=== PATIENT | female | born 1970 | race Caucasian/White ===

== ENCOUNTER 2016-12-12 14:02 | Inpatient (IN) | payer MEDICARE ==
--- NOTE | 2016-12-12 14:11 | ERPHSYRPT ---
- History of Present Illness Time Seen by Provider: 12/12/16 14:03 Source: patient, EMS, old records Exam Limitations: clinical condition (dyspnea) Physician History: patient presents with acute onset of SOB; had a cough slightly productive dark material for 2-3 days; no CP; no hemoptosis; no travel; no exposures; hx of COPD ; simialr episode a year ago requiring admission; being treated for ulcer post right heel; fever and chills; loose stools; nausea Timing/Duration: today (much worse), day(s) (2-3 onset uri), gradual onset, sudden (worse today), worse Activities at Onset: rest Severity of Dyspnea-Max: severe Severity of Dyspnea-Current: moderate Possible Cause: occasional episodes Modifying Factors: Improves With: albuterol nebulizer, coughing, exertion, oxygen Associated Symptoms: cough, fever, chills, productive cough International travel in last 2 weeks: No Allergies/Adverse Reactions: amoxicillin [From Augmentin] Allergy (Verified 12/12/16 14:12) clavulanic acid [From Augmentin] Allergy (Verified 12/12/16 14:12) Sulfa (Sulfonamide Antibiotics) Allergy (Verified 12/12/16 14:12) Home Medications: Albuterol 2.5 mg/3 ml Neb [Proventil 2.5 mg/3 ml Neb] 2.5 mg IH Q4-6HPRN PRN 12/12/16 [History] Clonazepam [Klonopin] 1 mg PO BIDPRN PRN 12/12/16 [History] Fluticasone/Salmeterol [Advair 250-50 Diskus] 1 puff IH DAILY 12/12/16 [History] Gabapentin 300 mg PO TID 12/12/16 [History] - Review of Systems Constitutional: Fever, Chills Eyes: No Symptoms Ears, Nose, & Throat: No Symptoms Respiratory: Cough, Dyspnea, Dyspnea on Exertion (ABDI), Wheezing Cardiac: No Chest Pain, No Palpitations, No Syncope Abdominal/Gastrointestinal: Nausea, Diarrhea, No Abdominal Pain, No Vomiting Genitourinary Symptoms: No Symptoms Musculoskeletal: No Symptoms Skin: Decubiti (post right ankle) Neurological: No Symptoms Psychological: No Symptoms Endocrine: No Symptoms Hematologic/Lymphatic: No Symptoms Immunological/Allergic: No Symptoms - Past Medical History Pertinent Past Medical History: Yes Respiratory History: COPD, Emphysema - Past Surgical History Past Surgical History: Yes - Social History Smoking Status: Former smoker Exposure to second hand smoke: No Alcohol Use: None Drug Use: none Patient Lives Alone: No Significant Family History: no pertinent family hx - Female History Hx Now: No - Nursing Vital Signs Nursing Vital Signs: Initial Vital Signs Temperature 98.1 F 12/12/16 14:03 Pulse Rate 139 H 12/12/16 14:03 Respiratory Rate 26 H 12/12/16 14:03 Blood Pressure 98/50 12/12/16 14:03 O2 Sat by Pulse Oximetry 99 12/12/16 14:03 Pain Scale Pain Intensity 6 - Physical Exam General Appearance: severe distress (respiratory), alert Eye Exam: PERRL/EOMI, eyes nml inspection Ears, Nose, Throat Exam: hearing grossly normal, normal ENT inspection, normal pharynx Neck Exam: normal inspection, non-tender, supple, full range of motion, No meningismus, No carotid bruit, No JVD, No subcutaneous emphysema Respiratory Exam: respiratory distress (significant), airway intact, diminished breath sounds (particularly Left base), accessory muscle use, wheezing, other ( dullness to percussion left base with E-A changes; ), No normal breath sounds, No chest tenderness, No lungs clear, No pleural rub Cardiovascular/Chest Exam: normal heart sounds, regular rate/rhythm, normal peripheral pulses, tachycardia, No murmur, No edema, No JVD Abdominal/Gastrointestinal Exam: soft, normal bowel sounds, No tenderness, No guarding, No rebound, No organomegaly Rectal Exam: deferred Extremity Exam: non-tender, normal range of motion, no calf tenderness, no pedal edema, No normal inspection (old scars from kay; ulcer post right heel) , No philip's sign Peripheral Pulses Exam: carotid (R): 4+, carotid (L): 4+, femoral (R): 4+, femoral (L): 4+ Neurologic Exam: alert, oriented x 3, cooperative, rn ccu II-XII nml as tested, No normal mood/affect (anxious) Skin Exam: normal color, warm, dry, decubitus (post right heel), No rash, No petechiae, No cyanosis (on O2) SpO2 Interpretation: O2 applied SpO2: 90 (improved after O2) Oxygen Delivery: Room Air - Course Nursing assessment & vital signs reviewed: Yes EKG Interpreted by Me: RATE (137), Sinus Rhythm, Sinus Tach, Right Severance Deviation, NORMAL INTERVALS, NORMAL QRS, Non-specific ST Changes Rhythm Strip: Rate (136), Sinus Tachycardia - Radiology Exams Chest X-ray Interpretation: Interpreted by me, Teleradiologist Report, Nml Heart Size , Infiltrates (LLL), Pneumonia (LLL) Ordered Tests: Active Orders 24 hr Category Date Time Status Bedrest ROUTINE Activity 12/12/16 16:08 Ordered Admission/Status Order ROUTINE Care 12/12/16 16:06 Ordered Call Admit Doctor for Orders ON ADMISSION Care 12/12/16 16:07 Ordered Equine Intern STAT Care 12/12/16 14:04 Active Code Status Order ROUTINE Care 12/12/16 16:06 Ordered EKG-ER Only STAT Care 12/12/16 14:03 Active Fall Protocol ROUTINE Care 12/12/16 16:08 Ordered IV Care Q6H Care 12/12/16 16:06 Ordered IV Insertion STAT Care 12/12/16 14:03 Active Oxygen-ED Only VENTI-MASK 28% Care 12/12/16 14:03 Active Pulse Oximetry (ED) STAT Care 12/12/16 14:03 Active Yovani Hose, Apply ROUTINE Care 12/12/16 16:06 Ordered Telemetry ROUTINE Care 12/12/16 16:06 Ordered Weight,Daily 0600 Care 12/12/16 16:06 Ordered NPO Diet 12/12/16 16:08 Ordered CHEST 1 VIEW (PORTABLE) Stat Exams 12/12/16 14:04 Completed BLOOD CULTURE Stat Lab 12/12/16 14:45 Received CBC W DIFF Stat Lab 12/12/16 14:35 Completed CMP Stat Lab 12/12/16 14:35 Completed CULTURE,SPUTUM Stat Lab 12/12/16 14:47 Uncollected CULTURE,URINE Stat Lab 12/12/16 14:47 Ordered D-DIMER QUANTITATION Stat Lab 12/12/16 14:35 Completed Lactic Acid Stat Lab 12/12/16 14:35 Results Lactic Acid Urgent Lab 12/12/16 Ordered MAGNESIUM Stat Lab 12/12/16 14:35 Completed Manual Differential NC Stat Lab 12/12/16 14:35 Completed NT PRO BNP Stat Lab 12/12/16 14:35 Completed PROTIME WITH INR Stat Lab 12/12/16 14:35 Completed PTT Stat Lab 12/12/16 14:35 Completed TROPONIN Q3H Lab 12/12/16 14:35 Completed TROPONIN Q3H Lab 12/12/16 17:15 Ordered TROPONIN Q3H Lab 12/12/16 20:15 Ordered TROPONIN Q3H Lab 12/12/16 23:15 Ordered TROPONIN Q3H Lab 12/13/16 02:15 Ordered UA Stat Lab 12/12/16 15:54 Ordered Transfer Order Routine Transfer 12/12/16 Ordered Medication Summary Generic Name Dose Route Start Last Admin Trade Name Cody PRN Reason Stop Dose Admin Enoxaparin Sodium 70 mg 12/12/16 16:15 Enoxaparin Sodium 1 mg/kg (70 mg) 12/12/16 16:16 SQ STAT ONE Sodium Chloride 1,000 mls @ 50 mls/hr 12/12/16 14:15 12/12/16 14:14 Sodium Chloride 0.9% 1000 Ml IV 01/11/17 14:14 50 mls/hr .Q20H BOWEN Administration Levofloxacin/Dextrose 750 mg in 150 mls @ 100 mls/hr 12/12/16 14:46 12/12/16 14:51 Levofloxacin 750mg/150ml D5w IV 12/12/16 16:15 100 mls/hr STAT STA Administration Sodium Chloride 1,000 mls @ 999 mls/hr 12/12/16 15:00 12/12/16 14:49 Sodium Chloride 0.9% 1000 Ml IV 12/12/16 17:00 999 mls/hr .Q1H1M BOWEN Administration Meropenem 1 g/ Sodium Chloride 100 mls @ 200 mls/hr 12/12/16 15:41 IV 12/12/16 16:10 STAT STA Magnesium Sulfate/Dextrose 100 mls @ 200 mls/hr 12/12/16 16:04 Magnesium 1 Gm / 100 Ml D5w IV 12/12/16 16:33 STAT ONE Discontinued Medications Generic Name Dose Route Start Last Admin Trade Name Freleslye PRN Reason Stop Dose Admin Levofloxacin/Dextrose Confirm 12/12/16 14:50 Levofloxacin 750mg/150ml D5w Administered 12/12/16 14:51 Dose 750 mg in 150 mls @ ud IV .STK-MED ONE Lab/Rad Data: Laboratory Result Diagrams 12/12/16 14:35 12/12/16 14:35 Laboratory Results 12/12/16 12/12/16 12/12/16 Range/Units 14:35 14:35 14:35 WBC (4.0-10.5) K/mm3 RBC (4.1-5.4) M/mm3 Hgb (12.0-16.0) gm/dl Hct (35-47) % MCV (78-100) fl MCH (26-32) pg MCHC (32-36) g/dl RDW (11.5-14.0) % Plt Count (150-450) K/mm3 MPV (6-9.5) fl Segmented Neutrophils (36.0-66.0) % Band Neutrophils (0.0-2.0) % Lymphocytes (Manual) (24-44) % Monocytes (Manual) (0.0-12.0) % Metamyelocytes % Differential Comment Toxic Granulation Dohle Bodies Platelet Estimate (NORMAL) Poikilocytosis INR 1.13 (0.8-3.0) APTT 24.1 L (25.3-37.0) SECONDS D-Dimer 3099 H* (0-500) ng/mL Sodium (136-145) mEq/L Potassium (3.5-5.1) mEq/L Chloride (98-107) mEq/L Carbon Dioxide (21-32) mEq/L Anion Gap (5-15) MEQ/L BUN (9-20) mg/dL Creatinine (0.55-1.30) mg/dl Estimated GFR ML/MIN Glucose (70-110) MG/DL Lactic Acid 4.0 H (0.4-2.0) Calcium (8.5-10.1) mg/dL Magnesium (1.8-2.4) mg/dL Total Bilirubin (0.2-1.0) mg/dL AST (15-37) U/L ALT (12-78) U/L Alkaline Phosphatase (46-116) U/L Troponin I < 0.017 (0.000-0.056) ng/ml NT-Pro-B Natriuret Pep (0-125) pg/ml Serum Total Protein (6.4-8.2) gm/dL Albumin (3.4-5.0) g/dL 09/26/17 09/26/17 Range/Units 14:35 14:35 WBC 17.2 H (4.0-10.5) K/mm3 RBC 4.12 (4.1-5.4) M/mm3 Hgb 12.0 (12.0-16.0) gm/dl Hct 35.3 (35-47) % MCV 85.7 (78-100) fl MCH 29.1 (26-32) pg MCHC 34.0 (32-36) g/dl RDW 15.0 H (11.5-14.0) % Plt Count 235 (150-450) K/mm3 MPV 11.1 H (6-9.5) fl Segmented Neutrophils 80 H (36.0-66.0) % Band Neutrophils 12 H (0.0-2.0) % Lymphocytes (Manual) 4 L (24-44) % Monocytes (Manual) 3 (0.0-12.0) % Metamyelocytes 1 % Differential Comment ABNORMAL Toxic Granulation 1+ Dohle Bodies 1+ Platelet Estimate NORMAL (NORMAL) Poikilocytosis 1+ INR (0.8-3.0) APTT (25.3-37.0) SECONDS D-Dimer (0-500) ng/mL Sodium 132 L (136-145) mEq/L Potassium 3.5 (3.5-5.1) mEq/L Chloride 98 (98-107) mEq/L Carbon Dioxide 16.0 L (21-32) mEq/L Anion Gap 21.6 H (5-15) MEQ/L BUN 27 H (9-20) mg/dL Creatinine 1.90 H (0.55-1.30) mg/dl Estimated GFR 30 ML/MIN Glucose 145 H (70-110) MG/DL Lactic Acid (0.4-2.0) Calcium 8.8 (8.5-10.1) mg/dL Magnesium 1.6 L (1.8-2.4) mg/dL Total Bilirubin 0.40 (0.2-1.0) mg/dL AST 38 H (15-37) U/L ALT 33 (12-78) U/L Alkaline Phosphatase 181 H (46-116) U/L Troponin I (0.000-0.056) ng/ml NT-Pro-B Natriuret Pep 3746 H (0-125) pg/ml Serum Total Protein 6.0 L (6.4-8.2) gm/dL Albumin 1.9 L (3.4-5.0) g/dL reviewed - Progress Progress: improved (after meds and duo neb), re-examined (after meds) Air Movement: fair Progress Note: 12/12/16 14:13 at scene on RA Pulse ox 90 and very distressed; received O2, Duo Neb and steroids enroute; improved on arrival; talking in 2-3 words sentences now; coughing paroxysms - dark sputum; will get labs, xr, cultures and eKG and monitor and recheck 12/12/16 14:27 patient improving with time after meds and duo neb; sats hi 90'S on O2; tadchycardic and borderline Hypotensive 96/70 12/12/16 14:34 patient rechecked; moving air better; no retractions; some tachypnea; sats 98% on 28% O2; no wheezing; still tachycardic 136 12/12/16 14:49 CXR shows LLLinfiltrate/pneumonia; lactate 4.0; will bolus IV fluids, start ATBs and monitor and recheck lactate 12/12/16 15:09 recheck and VS improving; BP now wnl; pulse still tachy (130) but improving after rapid IV fluids; first ATB going; Second ATB awaiting Pharmacy consult due to allergies; 12/12/16 15:[address] Lopez for admission to ICU 12/12/16 15:42 rechecked and improving; Dr Lopez consulted and will admit to ICU; consulted with Pharmacy and suggested using Merrom as second aTB; will order; D dimer elevated at [address] if renal fucntion ok; ; VS improving and patient improving; continuing IV fluid bolus; cbc elevatd wBC at 17.2; will continue to monitor 12/12/16 15:59 patient continues to improve clinically ; VS improved; she is feelign better; BS up at 145; renal fucntion up BUN = 27 and Cr = 1.90 so need to hold on CT until recheckj; NA low at 132 as is co2 at 16; Mg low at 1.6; pbnp up at 3746 and anion gap up at 21.6; Will given heparin INR 1.13 and Trop wnl; will repeat lactate on floor and now on second liter of IV fluid bolus Blood Culture(s) Obtained: Yes Antibiotics given: Yes Discussed with : John ( consulted for admission to ICU and agreed) Will see patient in: hospital (full admit) Counseled pt/family regarding: lab results, diagnosis, need for follow-up, rad results - Departure Time of Disposition: 16:09 Departure Disposition: In-patient Admission (to ICU) Clinical Impression: Severe sepsis, lactate = 4, Decubitus ulcer of ankle, right, unstageable, Left lower lobe pneumonia, Sinus tachycardia Condition: Critical Critical Care Time: Yes Critical Care Time(excluding separately billable procedures): 30-74 minutes Referrals: [facility] [LOCATION] - JUAN LUIS LOPEZ [ACTIVE STAFF] -
[2016-12-12] MEDS: Sodium Chloride 0.9% 1000 ML 1,000 ML IV SCH ×3 (14:14→19:24)
[2016-12-12] MEDS ORDERED: LEVOFLOXACIN 750MG/150ML D5W 750 MG/150 ML BAG IV STA (14:46)
[2016-12-12] MEDS ORDERED: LEVOFLOXACIN 750MG/150ML D5W 750 MG/150 ML BAG IV ONE (14:50)
--- NOTE | 2016-12-12 14:55 | XRAY ---
Indication: Short of breath and cough. Comparison: May 31, 2007. Portable chest demonstrates new left lower lobe infiltrate without large effusion. Remaining heart, lungs, and bony thorax normal.
[2016-12-12 15:00] LABS: Mean Cell Volume 85.7 fl (78-100); Mean Corpuscular Hemoglobin 29.1 pg (26-32); Mean Platelet Volume 11.1 fl (6-9.5); Platelet Count 235 K/mm3 (150-450); Red Blood Count 4.12 M/mm3 (4.1-5.4); White Blood Count 17.2 K/mm3 (4.0-10.5)
[2016-12-12] MEDS ORDERED: Sodium Chloride 0.9% 1000 ML 1,000 ML IV SCH (15:00)
[2016-12-12 15:14] LABS: INR 1.13 (0.8-3.0); PROTIME 12.6 SECONDS (9.95-12.35)
[2016-12-12 15:17] LABS: PTT 24.1 SECONDS (25.3-37.0)
[2016-12-12 15:30] LABS: ALBUMIN 1.9 g/dL (3.4-5.0); ANION GAP 21.6 MEQ/L (5-15); BILIRUBIN,TOTAL 0.4 mg/dL (0.2-1.0); MAGNESIUM 1.6 mg/dL (1.8-2.4); Potassium 3.5 mEq/L (3.5-5.1)
[2016-12-12] MEDS ORDERED: Merrem 1 GM 1 G in Sodium Chloride 100ML MINI-BAG PLUS 100 ML IV STA (15:41)
[2016-12-12 15:43] LABS: BAND 12 % (0.0-2.0); Metamyelocyte 1 %; Total Cells Counted 100
[2016-12-12 15:49] LABS: Dohle Bodies 1+; Toxic Granulation 1+
[2016-12-12 15:52] LABS: Platelet Estimate NORMAL (NORMAL); Poikilocytosis 1+
[2016-12-12] MEDS ORDERED: Magnesium 1 Gm / 100 Ml D5W*** 100 ML IV ONE ×2 (16:04→16:13)
[2016-12-12] MEDS ORDERED: Magnesium Sulfate 1 GM/2 ML VIAL ONE (16:13)
[2016-12-12] MEDS ORDERED: ENOXAPARIN SODIUM SQ ONE ×2 (16:14→16:15)
[2016-12-12 16:32] LABS: Bilirubin NEGATIVE (NEGATIVE); Blood TRACE NON-HEM Ery/ul (0-5); COMPLETE URINE MICROSCOPIC? YES; Collection Type CCMS; Glucose 100 mg/dL (NEGATIVE); Leukocyte Esterase TRACE (NEGATIVE)
[2016-12-12 16:33] LABS: Bacteria MODERATE /HPF (NEGATIVE); Epithelial Cells FEW /HPF (FEW); WBC 15-25 /HPF (0-5)
[2016-12-12] MEDS ORDERED: Sodium Chloride 0.9% 500 ML 500 ML IV ONE (17:29)
[2016-12-12] MEDS ORDERED: Zofran 4 MG/2 ML VIAL IV PRN (17:32)
[2016-12-12] MEDS ORDERED: Klonopin 0.5 MG PO PRN (17:48)
[2016-12-12] MEDS ORDERED: ADVAIR 250-50 DISKUS 14 DOSE IH SCH (19:00)
[2016-12-12] MEDS ORDERED: Sodium Chloride 0.9% 1000 ML 1,000 ML IV STA (19:40)
[2016-12-12] MEDS: PROVENTIL 2.5 MG/3 ML NEB IH PRN (19:46)
[2016-12-12] MEDS: Advair Hfa 115/21 Common canister IH SCH (19:51)
[2016-12-12 20:22] LABS: Lactic Acid 5.7 (0.4-2.0)
[2016-12-12] MEDS ORDERED: Dextrose 5%/Water IV Soln. 500 ML 500 ML IV ONE (21:46)
[2016-12-12] MEDS: LEVOPHED 4 MG/4 ML 4,000 MCG in Dextrose 5%/Water IV Soln. 500 ML 500 ML IV PRN (22:05)
[2016-12-12] MEDS: NEURONTIN 300 MG PO SCH (22:12)
[2016-12-13] MEDS ORDERED: KLONOPIN ONE (01:41)
[2016-12-13] MEDS: PROVENTIL 2.5 MG/3 ML NEB IH PRN ×3 (01:48→18:56)
[2016-12-13 02:59] LABS: Mean Cell Volume 86.7 fl (78-100); Mean Corpuscular Hemoglobin 29.1 pg (26-32); Mean Platelet Volume 10.5 fl (6-9.5); Platelet Count 275 K/mm3 (150-450); Red Blood Count 4.12 M/mm3 (4.1-5.4); Red Cell Distribution Width 15.4 % (11.5-14.0); White Blood Count 20.8 K/mm3 (4.0-10.5)
[2016-12-13 03:04] LABS: Lactic Acid 4.5 (0.4-2.0)
[2016-12-13 03:39] LABS: ALBUMIN 1.7 g/dL (3.4-5.0); ANION GAP 17.5 MEQ/L (5-15); BILIRUBIN,TOTAL 0.2 mg/dL (0.2-1.0); Carbon Dioxide 16.8 mEq/L (21-32); Total Protein 5.8 gm/dL (6.4-8.2)
[2016-12-13 03:55] LABS: Potassium 2.9 mEq/L (3.5-5.1)
[2016-12-13] MEDS: POTASSIUM CHLORIDE 20 mEq IN WATER 100ML 20 MEQ/100 ML BAG IV SCH ×2 (04:08→05:58)
[2016-12-13] MEDS: Merrem 1 GM 1 G in Sodium Chloride 100ML MINI-BAG PLUS 100 ML IV SCH ×2 (07:02→17:40)
[2016-12-13] MEDS: Advair Hfa 115/21 Common canister IH SCH ×2 (07:23→18:58)
[2016-12-13] MEDS ORDERED: Dermoplast Spray TP PRN (07:44)
--- NOTE | 2016-12-13 08:05 | HP ---
CHIEF COMPLAINT: Shortness of breath. HISTORY OF PRESENT ILLNESS: The patient is a 46 year-old white female who reports she began having a productive cough and had increasing shortness of breath over the past two days. The patient presented to herself to the emergency room and was found to be lactic acidosis and hypotensive and was admitted to the ICU for further evaluation and management. PAST MEDICAL/SURGICAL HISTORY: Significant for third degree kay across the mid portion of her body. She has anxiety issues and chronic obstructive pulmonary disease. HOME MEDICATIONS: Currently include Albuterol nebulizer solution, Klonopin 1 mg b.i.d. PRN for anxiety, Advair Diskus 50/250 and gabapentin 300 mg t.i.d. ALLERGIES: AUGMENTIN, SULFA. PHYSICAL EXAMINATION: Reveals a 46 year-old white female appearing older than her stated age. Her vital signs initially in the emergency room showed a temperature of 98.1F, pulse rate 139, respiratory rate 26, blood pressure 98/50. O2 saturation 99%. HEENT: Normocephalic, atraumatic. Pupils equal round reactive to light. Extraocular movements intact. Oropharynx is dry. NECK: Supple without lymphadenopathy, thyromegaly or JVD. CHEST: Clear to auscultation. HEART: Regular rate and rhythm. No murmurs, rubs or gallops are heard. ABDOMEN: Soft. No palpable masses were felt. EXTREMITIES: Without cyanosis, clubbing or edema. NEUROLOGIC: The patient is alert and oriented x3. No focal deficits are noted. LAB DATA AND TESTS: The patient's laboratory studies in the emergency room revealed influenza A/B and respiratory syncytial virus to be negative. UA was yellow and cloudy. Specific gravity 1.015 with 15-25 white blood cells per high power field and 2-5 red blood cells. Her nitrite however was negative. There was 300 protein in the urine. Lactic acid was 4.0. Her white blood cell count was 17,200, hemoglobin 12.0, PLT count 235,000. She had international normalized ratio of 1.13. D-dimer was elevated at 3,099. Troponin was less than 0.017. The differential did show 12 bands and 80 polys. The metabolic panel showed a glucose of 145 nonfasting, BUN 27, creatinine 1.7. Sodium slightly low at 132. Her alkaline phosphatase was slightly elevated at 181. Liver enzymes were essentially normal. Magnesium was somewhat low at 1.6. Chest x-ray showed new left lower lobe infiltrate without effusion. ASSESSMENT: A patient with pneumonia possible sepsis. She has been admitted to the hospital ICU on IV antibiotics and IV fluid boluses to improve her blood pressure. We will obtain a consultation from Dr. Reynolds due to past history of lung problems with pneumonia.
[2016-12-13] MEDS ORDERED: ENOXAPARIN SODIUM SQ SCH ×2 (10:00→22:20)
[2016-12-13] MEDS: NEURONTIN 300 MG PO SCH ×3 (10:07→22:28)
[2016-12-13] MEDS: Klonopin 0.5 MG PO PRN ×2 (10:10→22:28)
[2016-12-13] MEDS ORDERED: PHARMACY DOSING REQUIRED: VANCOMYCIN IV ONE (10:14)
[2016-12-13] MEDS ORDERED: VANCOCIN 1 GM VIAL*** 1.5 GM in Sodium Chloride 0.9% 500 ML 500 ML IV ONE (11:00)
--- NOTE | 2016-12-13 13:08 | XRAY ---
Exam: AP upright portable chest film from 1225 hrs. on 12/13/2016. Comparison: AP portable chest film from 12/12/2016. Indication: PICC line placement. Findings: There has been interval placement of right-sided PICC line with the tip pointing inferiorly within the mid SVC. No pneumothorax is seen. The transverse heart size appears within normal limits. I again see extensive airspace disease throughout the lower half of the left lung consistent with pneumonia. The left lateral costophrenic angle is not blunted. Some concomitant retrocardiac left lower lobe atelectasis is not excluded. The left upper lung field and right lung field are clear. The bones are intact. Impression: 1. Interval placement of right-sided PICC line with tip in mid SVC pointing inferiorly. No complications are seen. 2. Extensive airspace disease consistent with pneumonia is seen throughout the lower half of the left lung. The airspace disease is slightly denser than that seen on 12/12/2016. I cannot exclude some concomitant retrocardiac left lower lobe atelectasis as well. 3. No other acute cardiopulmonary disease is seen.
[2016-12-13] MEDS: LEVOFLOXACIN 750MG/150ML D5W 750 MG/150 ML BAG IV SCH (15:57)
[2016-12-13] MEDS: LEVOPHED 4 MG/4 ML 4,000 MCG in Dextrose 5%/Water IV Soln. 500 ML 500 ML IV PRN (19:16)
[2016-12-13] MEDS: Sodium Chloride 0.9% 1000 ML 1,000 ML IV SCH (22:05)
[2016-12-13] MEDS ORDERED: ENOXAPARIN SODIUM SQ ONE (23:37)
[2016-12-14] MEDS: Ativan 2 MG/1 ML VIAL IV PRN ×2 (00:26→03:32)
[2016-12-14] MEDS: Sodium Chloride 0.9% 1000 ML 1,000 ML IV SCH ×2 (05:31)
[2016-12-14] MEDS: Merrem 1 GM 1 G in Sodium Chloride 100ML MINI-BAG PLUS 100 ML IV SCH ×2 (05:33→17:59)
[2016-12-14 06:34] LABS: ALBUMIN 1.4 g/dL (3.4-5.0); ALKALINE PHOSPHATASE 181 U/L (46-116); ANION GAP 14.3 MEQ/L (5-15); BLOOD UREA NITROGEN 22 mg/dL (9-20); CHLORIDE 110 mEq/L (98-107); Carbon Dioxide 19.6 mEq/L (21-32); Glucose 298 MG/DL (70-110); Potassium 3.3 mEq/L (3.5-5.1); SGOT/AST 53 U/L (15-37); SODIUM 141 mEq/L (136-145); Total Protein 5.2 gm/dL (6.4-8.2)
[2016-12-14 06:50] LABS: SGPT/ALT 44 U/L (12-78)
[2016-12-14 06:58] LABS: Mean Cell Volume 86.8 fl (78-100); Mean Platelet Volume 10.9 fl (6-9.5); Platelet Count 283 K/mm3 (150-450); Red Blood Count 3.72 M/mm3 (4.1-5.4); Red Cell Distribution Width 15.6 % (11.5-14.0)
[2016-12-14 07:02] LABS: Mean Corpuscular Hemoglobin 29.5 pg (26-32); White Blood Count 28.8 K/mm3 (4.0-10.5)
[2016-12-14] MEDS: Advair Hfa 115/21 Common canister IH SCH ×2 (07:07→19:13)
--- NOTE | 2016-12-14 07:44 | CONS ---
CONSULT DATE: 12/13/2016 REASON FOR CONSULTATION: Evaluation of pneumonia, shortness of breath. HISTORY: Miss Carmencita Freed is a 46 year-old woman who has been admitted with a few days symptoms of shortness of breath, fever, nausea, vomiting and dizziness. The patient presented to the emergency room at [facility] with the above symptoms. She was noted to have temperature of 98.1F, heart rate of 139, blood pressure 98/50 and oxygen saturation of mid 90's. Subsequent investigation revealed a dense left lower lobe pneumonia. The patient has been started on broad spectrum antibiotics including Merrem, Levaquin and Vancomycin. She was noted to have abnormally high creatinine along with the positive D-dimer. The creatinine value has improved with IV hydration. Last night the patient was noted to have marginal blood pressure and I was consulted for further management. I advised additional fluid bolus followed by Levophed which was started and is currently at 2 mcg. The patient's blood pressure has shown improvement and she is noted with good urinary output as well as improvement in serum creatinine level as well. At the time of my evaluation today, the patient is able to speak full sentences. She is able to get oxygen mask off maintaining good saturation as well. She reports multiple episodes of pneumonia over the past several years since 2000. She reports that about three years ago she was admitted at [facility] and also had similar problems back then. PAST MEDICAL HISTORY: Positive for chronic obstructive pulmonary disease, chronic pain, anxiety disorder. PAST SURGICAL HISTORY: No recent surgeries. PERSONAL AND SOCIAL HISTORY: The patient quit smoking around 2000. She lives with family. MEDICATIONS: Home and current medications are reviewed. At home she was on Klonopin 1 mg b.i.d. PRN, Advair 250/50 b.i.d., gabapentin 300 mg t.i.d., Albuterol nebulizers. ALLERGIES: BACTRIM (SKIN BREAK DOWN), AMOXICILLIN (FACIAL RASH). PHYSICAL EXAMINATION: This is a middle aged woman who appears tired but not in any distress. Vital signs are noted. Heart rate is still 130, blood pressure 106/76. Saturating 98%. HEENT: Normocephalic. Oral exam is limited. NECK: Supple. CVS: First and second heart sounds are normal, regular, rhythmic with tachycardia. RESPIRATORY: Shows diminished breath sounds. Crackles are noted at left lung base. ABDOMEN: Soft. No edema is noted. LABORATORY DATA AND TESTS: Labs are reviewed. X-rays noted. ASSESSMENT: This is a 46 year old woman admitted with: 1) Left lower lobe community acquired pneumonia. 2) Severe sepsis with septic shock improving hemodynamically. 3) Acute renal failure with creatinine of 1.9 which has improved to 1.3 on today's labs. 4) Chronic obstructive pulmonary disease? The patient is a former smoker. 5) Immunosuppressed state with recurrent pneumonia? 6) Positive D-dimer test, low clinical suspicion for pulmonary embolism. Unable to use contrast but certainly can obtain lower extremity venous Doppler's. RECOMMENDATIONS: 1) Pulmonary function test upon discharge. 2) I agree with current choice of antibiotics. 3) Continue pulmonary toilet. 4) Wean supplemental oxygen along with wean pressers keeping systolic blood pressure at 100 mm of Mercury. 5) I will check immunoglobulin level when clinical recovery is noted. 6) The patient has been scheduled for VQ scan. I am unsure if the patient can lay flat and particularly with a dense infiltrate a VQ will not be of low probability. Hence, I recommend that we obtain venous Doppler's and hold off on VQ until radiologic clearance is obtained. I will continue to follow. Thank you for allowing me to participate in the care of Miss Carmencita Freed.
--- NOTE | 2016-12-14 08:47 | XRAY ---
Exam: AP upright portable chest film from 0810 hours on 12/14/2016 Comparison: AP upright portable chest film from 12/13/2016. Indication: Pneumonia. Findings: The transverse heart size appears within normal limits. I see mild airspace disease throughout the lower half of the left lung which partially obscures the left hemidiaphragm. This is believed to be due to pneumonia. There is also some straightening of the left cardiac border which may indicate some concomitant left lower lobe atelectasis. The left upper lobe remains clear. There is no mediastinal widening or shift. The right lung reveals minimal hazy density within the right costophrenic angle which appears to be a new finding. This could be due to a small amount of pleural fluid or minimal infiltrate in this projection. Otherwise, the remainder of the right lung appears clear. Right-sided PICC line is noted with the tip pointing inferiorly within the mid SVC. No acute osseous process is seen. Impression: 1. Compared to yesterday's chest radiograph, there is some new minimal focal airspace opacity within the projection of the right costophrenic angle which may indicate minimal infiltrate or a small amount of right pleural fluid. Also, the left hemidiaphragm appears more obscured as compared to yesterday's chest radiograph. Left lower lung field airspace pneumonic infiltrate and probable concomitant left lower lobe atelectasis persist.
[2016-12-14 08:49] LABS: BAND 12 % (0.0-2.0); Total Cells Counted 100
--- NOTE | 2016-12-14 08:52 | XRAY ---
Exam: Bilateral lower extremity duplex Doppler venous ultrasound exam from 12/14/2016. Comparison: None. Indication: Elevated d-dimer. Findings: Examination was performed in usual manner with visualization of the deep veins from groin to knee bilaterally, as well as the distal posterior tibial veins bilaterally. No echogenic clot was seen. Normal transducer compression, color flow imaging, and Doppler signal augmentation were seen throughout both lower extremities. The greater saphenous vein and profunda femoral vein within each proximal thigh demonstrated normal color flow and Doppler signal. Impression: 1. No evidence of deep venous thrombosis is seen within either lower extremity.
[2016-12-14 08:53] LABS: Dohle Bodies 1+; Poikilocytosis 1+
[2016-12-14 08:54] LABS: Toxic Granulation RARE
[2016-12-14 08:56] LABS: Platelet Estimate NORMAL (NORMAL)
[2016-12-14] MEDS ORDERED: FLUCELVAX QUAD 2017-2018 SYR IM ONE (10:00)
[2016-12-14] MEDS ORDERED: VANCOCIN 1 GM VIAL*** 1 GM in Sodium Chloride 0.9% 250 ML 250 ML IV SCH (10:00)
[2016-12-14] MEDS: Sodium Chloride 0.9% W/ 20 mEq KCl/LITER 1,000 ML IV SCH (10:20)
[2016-12-14] MEDS: NEURONTIN 300 MG PO SCH ×3 (10:24→21:34)
[2016-12-14] MEDS: ENOXAPARIN SODIUM SQ SCH ×2 (10:25→21:33)
[2016-12-14] MEDS: Klonopin 0.5 MG PO PRN (15:58)
[2016-12-14] MEDS: LEVOFLOXACIN 750MG/150ML D5W 750 MG/150 ML BAG IV SCH (15:59)
[2016-12-14] MEDS: Lopressor 25MG Tab PO SCH (17:59)
[2016-12-14] MEDS: VANCOCIN 1 GM VIAL*** 0.75 GM in Sodium Chloride 0.9% 250 ML 250 ML IV SCH (22:16)
[2016-12-15] MEDS: Ativan 2 MG/1 ML VIAL IV PRN (00:50)
[2016-12-15 06:08] LABS: Mean Cell Volume 87.4 fl (78-100); Mean Platelet Volume 9.7 fl (6-9.5); Platelet Count 275 K/mm3 (150-450); Red Blood Count 3.89 M/mm3 (4.1-5.4); White Blood Count 23.5 K/mm3 (4.0-10.5)
[2016-12-15 06:14] LABS: Mean Corpuscular Hemoglobin 28.7 pg (26-32)
[2016-12-15] MEDS: Merrem 1 GM 1 G in Sodium Chloride 100ML MINI-BAG PLUS 100 ML IV SCH ×2 (06:24→19:45)
[2016-12-15 06:31] LABS: ALBUMIN 1.4 g/dL (3.4-5.0); ALKALINE PHOSPHATASE 172 U/L (46-116); BLOOD UREA NITROGEN 23 mg/dL (9-20); CHLORIDE 113 mEq/L (98-107); Carbon Dioxide 23.9 mEq/L (21-32); Glucose 103 MG/DL (70-110); SGOT/AST 42 U/L (15-37); SGPT/ALT 43 U/L (12-78); SODIUM 144 mEq/L (136-145); Total Protein 4.9 gm/dL (6.4-8.2)
[2016-12-15] MEDS: Advair Hfa 115/21 Common canister IH SCH ×2 (06:59→18:54)
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
[2016-12-15 08:27] LABS: BAND 3 % (0.0-2.0); Eosinophil 1 % (0.00-3.0); Metamyelocyte 4 %; Platelet Estimate NORMAL (NORMAL); Total Cells Counted 100
[2016-12-15] MEDS: NEURONTIN 300 MG PO SCH ×3 (09:19→23:39)
[2016-12-15] MEDS: ENOXAPARIN SODIUM SQ SCH ×2 (09:20→23:39)
[2016-12-15] MEDS: Lopressor 25MG Tab PO SCH ×2 (09:20→23:41)
[2016-12-15] MEDS ORDERED: TROUGH DRUG LEVELS IJ ONE (09:30)
--- NOTE | 2016-12-15 09:50 | XRAY ---
Exam: CTA of the chest with IV contrast per PE protocol from 12/15/2016. CTDI: 27.99 Comparison: AP upright portable chest film from 12/14/2016. Indication: Elevated d-dimer (3099 with normal range of 0-500). Technique: Post-IV contrast thin section images were obtained through the chest during automated injection of 80 cc of Isovue-370 contrast material per PE protocol. The patient's arms are down by her side. Reconstructed coronal MIP images and reconstructed sagittal images were created and reviewed. Findings: The central pulmonary arteries enhance well with contrast. I see no filling defects to suggest clot/emboli. The thoracic aorta reveals no aneurysm or dissection. The heart size is normal without pericardial effusion. A right-sided PICC line is seen extending into the mid SVC. Some nonspecific mediastinal and right perihilar lymph nodes are seen. There is a lymph node anterior and just to the right of the trachea on axial image #35 which measures 0.9 cm in short axis. In addition, just anterior to the zhang on axial image 46, there is a 1.0 cm in short axis lymph node. I believe there are a couple other small lymph nodes seen just anterior left lateral and to the left of the distal trachea measuring about 0.9 cm in diameter. A lymph node overlying the right hilum on axial image #42 measures 1.5 cm in diameter. This could possibly represent reactive lymphadenopathy. The thyroid gland appears grossly unremarkable. Extensive dense consolidation is seen within the majority of the left lower lobe. This narrows the bronchus to the left lower lobe on axial image #24 of series #4. This probably represents a combination of atelectasis and dense infiltrate. I also note scattered patchy airspace infiltrate throughout the base of the left lower lobe. Also, there is a mild posterior left pleural effusion. At the right lung base, there is a mild posterior layering pleural effusion as well as some mild streaky atelectasis within both the base of the right middle lobe and the right lower lobe. Also, there is a small more consolidated opacity posterolaterally at the right lung base on axial images #3 through #17 as well. This could represent focal infiltrate. I also note some mild increased attenuation of the soft tissues of the chest, particularly at the mid and inferior aspects. This suggests some anasarca. Only a small portion of the upper abdomen was imaged. No abnormality is seen. Impression: 1. I see no findings to suggest pulmonary embolism or thoracic aortic dissection. 2. Extensive dense consolidation is seen throughout the majority of the left lower lobe consistent with patchy pneumonic infiltrate with probable concomitant atelectasis. The proximal portion of the left lower lobe bronchus appears narrowed. Second, I believe there is a small focal infiltrate posterolaterally at the right lung base as well as mild bibasilar pleural effusions, left greater than right. There is also some streaky linear atelectasis at both the base of the right middle lobe and base of the right lower lobe. 3. Anasarca is evident within the soft tissues, particularly within the lower chest. 3. I note some mild mediastinal and right perihilar lymphadenopathy which could be reactive in nature.
[2016-12-15] MEDS: VANCOCIN 1 GM VIAL*** 0.75 GM in Sodium Chloride 0.9% 250 ML 250 ML IV SCH (10:11)
[2016-12-15] MEDS: PROVENTIL 2.5 MG/3 ML NEB IH PRN ×2 (11:25→16:48)
[2016-12-15] MEDS: Klonopin 0.5 MG PO PRN (14:18)
[2016-12-15] MEDS: LEVOFLOXACIN 750MG/150ML D5W 750 MG/150 ML BAG IV SCH (16:01)
[2016-12-15] MEDS: NORCO 5/325 MG PO PRN (17:56)
[2016-12-15] MEDS: VANCOCIN 1 GM VIAL*** 1 GM in Sodium Chloride 0.9% 250 ML 250 ML IV SCH (23:38)
[2016-12-16] MEDS: Klonopin 0.5 MG PO PRN ×2 (00:42→14:06)
[2016-12-16] MEDS: PROVENTIL 2.5 MG/3 ML NEB IH PRN (00:50)
[2016-12-16] MEDS: NORCO 5/325 MG PO PRN ×3 (02:02→18:05)
[2016-12-16] MEDS: Ativan 2 MG/1 ML VIAL IV PRN ×2 (05:25→21:45)
[2016-12-16 06:06] LABS: Mean Cell Volume 87.1 fl (78-100); Mean Corpuscular Hemoglobin 29.2 pg (26-32); Mean Platelet Volume 9.1 fl (6-9.5); Platelet Count 176 K/mm3 (150-450); Red Blood Count 3.56 M/mm3 (4.1-5.4); White Blood Count 17.7 K/mm3 (4.0-10.5)
[2016-12-16 06:35] LABS: ALBUMIN 1.3 g/dL (3.4-5.0); ALKALINE PHOSPHATASE 130 U/L (46-116); ANION GAP 9.8 MEQ/L (5-15); BLOOD UREA NITROGEN 13 mg/dL (9-20); CHLORIDE 113 mEq/L (98-107); Carbon Dioxide 25.4 mEq/L (21-32); Glucose 96 MG/DL (70-110); Potassium 5.2 mEq/L (3.5-5.1); SGOT/AST 26 U/L (15-37); SGPT/ALT 29 U/L (12-78); SODIUM 143 mEq/L (136-145); Total Protein 4.4 gm/dL (6.4-8.2)
[2016-12-16] MEDS: Merrem 1 GM 1 G in Sodium Chloride 100ML MINI-BAG PLUS 100 ML IV SCH (06:43)
[2016-12-16] MEDS: Advair Hfa 115/21 Common canister IH SCH ×2 (07:12→19:44)
[2016-12-16] MEDS: Sodium Chloride 0.9% W/ 20 mEq KCl/LITER 1,000 ML IV SCH ×2 (10:40→10:44)
[2016-12-16] MEDS: ENOXAPARIN SODIUM SQ SCH ×2 (10:44→21:44)
[2016-12-16] MEDS: VANCOCIN 1 GM VIAL*** 1 GM in Sodium Chloride 0.9% 250 ML 250 ML IV SCH (10:44)
[2016-12-16] MEDS: NEURONTIN 300 MG PO SCH ×3 (10:45→21:44)
[2016-12-16] MEDS: Lopressor 25MG Tab PO SCH ×2 (10:45→21:43)
[2016-12-16] MEDS ORDERED: Sodium Chloride 0.9% 1000 ML 1,000 ML IV SCH (12:45)
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
[2016-12-16] MEDS: LEVOFLOXACIN 750MG/150ML D5W 750 MG/150 ML BAG IV SCH (14:07)
[2016-12-16] MEDS: MOTRIN 600 MG PO PRN (15:21)
--- NOTE | 2016-12-16 20:38 | XRAY ---
Indication: Pneumonia. Comparison: December 06, 2016. PA/lateral chest again demonstrates bibasilar infiltrates/atelectasis/effusions minimally worsened on the right. Heart is not enlarged. No new cardiopulmonary abnormalities. Stable right arm PICC line. Comment: Preliminary interpretation was made by [facility]. No discrepancy.
[2016-12-17] MEDS: NORCO 5/325 MG PO PRN ×3 (02:39→18:36)
[2016-12-17] MEDS: Klonopin 0.5 MG PO PRN ×2 (02:39→22:10)
[2016-12-17 07:10] LABS: Mean Cell Volume 88.5 fl (78-100); Mean Corpuscular Hemoglobin 29.6 pg (26-32); Mean Platelet Volume 9.5 fl (6-9.5); Platelet Count 210 K/mm3 (150-450); Red Blood Count 3.58 M/mm3 (4.1-5.4); White Blood Count 18.1 K/mm3 (4.0-10.5)
[2016-12-17 07:14] LABS: ANION GAP 8.8 MEQ/L (5-15); BLOOD UREA NITROGEN 13 mg/dL (9-20); CHLORIDE 111 mEq/L (98-107); Carbon Dioxide 28.4 mEq/L (21-32); Glucose 88 MG/DL (70-110); Potassium 3.9 mEq/L (3.5-5.1); SODIUM 144 mEq/L (136-145)
[2016-12-17] MEDS: MOTRIN 600 MG PO PRN (07:38)
[2016-12-17] MEDS ORDERED: TROUGH DRUG LEVELS IJ ONE (09:30)
[2016-12-17] MEDS: NEURONTIN 300 MG PO SCH ×3 (09:56→22:10)
[2016-12-17] MEDS: Lopressor 25MG Tab PO SCH ×2 (09:56→22:12)
[2016-12-17] MEDS: ENOXAPARIN SODIUM SQ SCH (09:57)
[2016-12-17] MEDS: Ativan 2 MG/1 ML VIAL IV PRN ×2 (10:17→16:33)
[2016-12-17 11:05] LABS: BAND 7 % (0.0-2.0); Eosinophil 3 % (0.00-3.0); Total Cells Counted 100
[2016-12-17 11:06] LABS: Platelet Estimate NORMAL (NORMAL); Toxic Granulation 2+
--- NOTE | 2016-12-17 14:05 | PCM.NOTE ---
Date and Time: 12/17/16 1554 Subjective Assessment: Pt states she feels much better. She went out for a walk and is not having any shortness of breath. She is not currently on O2. - Review of Systems Constitutional: No Fever Respiratory: Cough Objective Exam General Appearance: no apparent distress, alert Neurologic Exam: oriented x 3, cooperative Skin Exam: normal color, warm, dry Respiratory Exam: normal breath sounds, lungs clear, No crackles/rales, No rhonchi, No wheezing Cardiovascular Exam: regular rate/rhythm, normal heart sounds, No murmur Back Exam: normal inspection OBJECTIVE DATA Vital Signs: Vital Signs - 24 hr Temp Pulse Resp BP Pulse Ox 12/17/16 11:44 97.1 F 69 16 130/75 96 12/17/16 07:50 97.9 F 85 16 121/69 95 12/17/16 07:25 88 20 95 12/17/16 04:00 98.0 F 89 19 105/65 92 L 12/17/16 00:00 98.2 F 76 16 109/65 93 L 12/16/16 20:00 98.0 F 81 18 118/79 92 L 12/16/16 19:46 94 H 18 95 12/16/16 16:00 98.5 F 92 H 16 130/79 94 L Oxygen-Last 24 hours O2 Percentage 2 Liters = 28% Pain Assessment - Last Documented Pain Intensity 3 Pain Scale Used 0-10 Pain Scale Intake and Output: Intake & Output 12/15/16 12/16/16 12/17/16 12/18/16 11:59 11:59 11:59 11:59 Intake Total 5745 5938 3680 Output Total 9935 1999 Balance 1922 1634 3687 Weight 75.9 kg 79.333 kg 76.975 kg Lab Results: Lab Results-Last 24 Hours 12/17/16 12/17/16 Range/Units 05:45 05:45 WBC 18.1 H (4.0-10.5) K/mm3 RBC 3.58 L (4.1-5.4) M/mm3 Hgb 10.6 L (12.0-16.0) gm/dl Hct 31.7 L (35-47) % MCV 88.5 (78-100) fl MCH 29.6 (26-32) pg MCHC 33.4 (32-36) g/dl RDW 16.0 H (11.5-14.0) % Plt Count 210 (150-450) K/mm3 MPV 9.5 (6-9.5) fl Segmented Neutrophils 67 H (36.0-66.0) % Band Neutrophils 7 H (0.0-2.0) % Lymphocytes (Manual) 19 L (24-44) % Monocytes (Manual) 4 (0.0-12.0) % Eosinophils (Manual) 3 (0.00-3.0) % Differential Comment NORMAL Toxic Granulation 2+ Platelet Estimate NORMAL (NORMAL) Sodium 144 (136-145) mEq/L Potassium 3.9 (3.5-5.1) mEq/L Chloride 111 H (98-107) mEq/L Carbon Dioxide 28.4 (21-32) mEq/L Anion Gap 8.8 (5-15) MEQ/L BUN 13 (9-20) mg/dL Creatinine 0.49 L (0.55-1.30) mg/dl Estimated GFR > 60 ML/MIN Glucose 88 (70-110) MG/DL Calcium 7.7 L (8.5-10.1) mg/dL Radiology Exams: Radiology Procedures Category Date Time Status CHEST 2 VIEWS (PA AND LAT) Routine Exams 12/16/16 08:00 Completed Assessment/Plan (1) Left lower lobe pneumonia Current Visit: Yes Status: Acute Qualifiers: Pneumonia type: due to unspecified organism Qualified Code(s): J18.1 - Lobar pneumonia, unspecified organism Assessment & Plan: On IV levaquin; I discussed antibiotics with pharmacy yesterday and since pt only grew S. pneumoniae in a blood culture, we decided to d/c the vancomycin and merropenem. She is overall feeling better today. Would like to go home, however there is a final culture result due tomorrow. Also, she still has leukocytosis (17,000 today). Code(s): J18.1 - LOBAR PNEUMONIA, UNSPECIFIED ORGANISM (2) Acute renal failure (ARF) Current Visit: Yes Status: Resolved Qualifiers: Acute renal failure type: unspecified Qualified Code(s): N17.9 - Acute kidney failure, unspecified Assessment & Plan: Renal function wnl today. (3) Hyperkalemia Current Visit: Yes Status: Resolved Assessment & Plan: normal today. Code(s): E87.5 - HYPERKALEMIA (4) Decubitus ulcer of ankle, right, unstageable Current Visit: Yes Status: Chronic Assessment & Plan: present on admission Code(s): L89.510 - PRESSURE ULCER OF RIGHT ANKLE, UNSTAGEABLE
[2016-12-17] MEDS: LEVOFLOXACIN 750MG/150ML D5W 750 MG/150 ML BAG IV SCH (16:32)
[2016-12-17] MEDS ORDERED: Sodium Chloride 0.9% 10 ML FLUSH Syringe PICC SCH (22:00)
[2016-12-18] MEDS: NORCO 5/325 MG PO PRN ×4 (00:26→22:34)
[2016-12-18] MEDS: Ativan 2 MG/1 ML VIAL IV PRN (00:47)
[2016-12-18] MEDS: Advair Hfa 115/21 Common canister IH SCH ×3 (03:30→19:56)
[2016-12-18] MEDS ORDERED: PHARMACY DOSING REQUIRED: VANCOMYCIN IV ONE (08:45)
--- NOTE | 2016-12-18 09:09 | XRAY ---
Indication: Follow-up pneumonia. Comparison: December 16, 2016. PA/lateral chest again demonstrates bibasilar infiltrates/atelectasis/effusions minimally improved on the left and stable on the right. Remaining cardiopulmonary structures and right arm PICC line stable and unremarkable.
[2016-12-18] MEDS: Klonopin 0.5 MG PO SCH ×2 (09:45→18:16)
[2016-12-18] MEDS: ENOXAPARIN SODIUM SQ SCH (09:47)
[2016-12-18] MEDS: Protonix 40MG Tablet PO SCH (09:48)
[2016-12-18] MEDS: NEURONTIN 300 MG PO SCH ×3 (09:48→21:12)
[2016-12-18] MEDS ORDERED: ROCEPHIN 1 Gm-D5w 50 ml Bag** 1 G/50 ML IVPB IV SCH (10:00)
[2016-12-18] MEDS: Ecotrin 325 MG PO SCH (10:21)
--- NOTE | 2016-12-18 10:54 | ECHO ---
Transthoracic echocardiographic examination and color Doppler was done on 12/14/2016. INDICATION: Atrial fibrillation, shortness of breath. IMPRESSION: 1) MILD LEFT VENTRICULAR HYPOKINESIA. EJECTION FRACTION OF AROUND 50%. 2) MODERATE TO SEVERE TRICUSPID REGURGITATION. RIGHT VENTRICULAR SYSTOLIC PRESSURE OF 36 MM OF MERCURY. 3) TRACE MITRAL REGURGITATION. 4) MILDLY DILATED LEFT ATRIUM. The left ventricle is visualized and demonstrated mild left ventricular hypokinesia. The ejection fraction is 50%. The left ventricular thickness is normal. The mitral valve is seen and this opens adequately. There is mitral regurgitation. Left atrium is normal. The aortic valve opens adequately. There is no significant gradient across the left ventricular outflow tract. Right side chambers are normal. There is moderate to severe tricuspid regurgitation. The right ventricular systolic pressure of 36 mm of Mercury.
[2016-12-18] MEDS: VANCOCIN 1 GM VIAL*** 0.75 GM in Sodium Chloride 0.9% 250 ML 250 ML IV SCH ×2 (11:17→21:13)
[2016-12-18] MEDS: Lopressor 25MG Tab PO SCH ×2 (11:17→21:13)
[2016-12-18] MEDS ORDERED: Vancomycin 1GM/ Ns 250ML*** 250 ML IV ONE (20:38)
[2016-12-19] MEDS: Klonopin 0.5 MG PO PRN (00:39)
[2016-12-19 05:40] LABS: Mean Cell Volume 89.5 fl (78-100); Mean Platelet Volume 9.5 fl (6-9.5); Platelet Count 327 K/mm3 (150-450); Red Blood Count 3.52 M/mm3 (4.1-5.4); Red Cell Distribution Width 16.3 % (11.5-14.0); White Blood Count 12.8 K/mm3 (4.0-10.5)
[2016-12-19 05:41] LABS: Mean Corpuscular Hemoglobin 29.2 pg (26-32)
[2016-12-19] MEDS: NORCO 5/325 MG PO PRN (07:21)
[2016-12-19 07:32] LABS: ALBUMIN 1.9 g/dL (3.4-5.0); ALKALINE PHOSPHATASE 115 U/L (46-116); ANION GAP 7.9 MEQ/L (5-15); BLOOD UREA NITROGEN 11 mg/dL (9-20); CHLORIDE 110 mEq/L (98-107); Carbon Dioxide 31.8 mEq/L (21-32); Eosinophil 1 % (0.00-3.0); Glucose 79 MG/DL (70-110); Potassium 4.6 mEq/L (3.5-5.1); SGOT/AST 41 U/L (15-37); SGPT/ALT 28 U/L (12-78); SODIUM 145 mEq/L (136-145); Total Cells Counted 100; Total Protein 5.1 gm/dL (6.4-8.2)
[2016-12-19 07:33] LABS: Platelet Estimate NORMAL (NORMAL)
--- NOTE | 2016-12-19 08:53 | PCM.DCORD ---
- Discharge Discharge Date: 12/19/16 Disposition: Home, Self-Care Prescriptions: Continue Fluticasone/Salmeterol [Advair 250-50 Diskus] 1 puff IH BID Albuterol 2.5 mg/3 ml Neb [Proventil 2.5 mg/3 ml Neb] 2.5 mg IH Q4- 6HPRN PRN PRN Reason: Shortness Of Breath/Wheezing Gabapentin 300 mg PO TID #90 capsule Clonazepam [Klonopin] 1 mg PO BIDPRN PRN #60 tablet PRN Reason: Anxiety Additional Instructions: Start outpatient infusion of Vancomycin daily for 6 days. Appointment 12/20 @ 0900 very important to be on time for correct dosing of this medication. Follow up with: JUAN LUIS SOTO [ACTIVE STAFF] - Forms: Patient Portal Information
[2016-12-19] MEDS ORDERED: VANCOCIN 1 GM VIAL*** 1.25 GM in Sodium Chloride 0.9% 250 ML 250 ML IV SCH (10:00)
[2016-12-19] MEDS: Ecotrin 325 MG PO SCH (10:35)
[2016-12-19] MEDS: Protonix 40MG Tablet PO SCH (10:35)
[2016-12-19] MEDS: NEURONTIN 300 MG PO SCH (10:36)
[2016-12-19] MEDS: Klonopin 0.5 MG PO SCH (10:36)
[2016-12-19] MEDS: ENOXAPARIN SODIUM SQ SCH (10:37)
[2016-12-19] MEDS: Lopressor 25MG Tab PO SCH (12:00)
[2016-12-19 12:18] VITALS: BP 119/75; PULSE 86; O2SAT 99
--- NOTE | 2016-12-19 13:57 | DS ---
DISCHARGE DIAGNOSES: 1) SEPTIC SHOCK. 2) PNEUMOCOCCAL PNEUMONIA INFECTION OF THE LUNG. HOSPITAL COURSE: The patient is a 46 year-old white female who presented to the hospital being quite ill with cough and fever. When she was initially brought into the hospital she was quite hypotensive. We asked for consultation from Dr. Reynolds due to the intensive nature of her illness. She was also seen in consultation by Dr. Aguilar. The patient on cultures was found to have pneumococcal pneumonia infection. Her chest x-ray showed opacifications in the left side and somewhat on the right side as well. The patient was noted to have poor IV access and therefore PICC line was placed for antibiotic treatment. The patient was continued on IV Vancomycin and Rocephin during her stay. Cultures did return positive for pneumococcal pneumonia which was sensitive to both Rocephin and Vancomycin although the patient has a penicillin allergy. She was therefore placed on Vancomycin. The patient slowly recovered resolving her hypotension. She was initially on Levophed to control her blood pressure that remained in the low 70's initially. By the morning of 12/18/2016 the patient was doing much better. She was requesting benzodiazepine particularly her Klonopin and taking Ativan on top of that. She was generally usually quite drowsy from that but each morning when I evaluated her I am quite concerned that the patient is addicted to the benzodiazepine medications. We discontinued her IV Ativan and placed her just on oral Klonopin and allowed her to have additional doses up to four times a day. The patient was somewhat difficult to manage with her noncompliance so after she got to feeling better was outside of the hospital and actually leaving the hospital grounds at times walking to the gas station and back. The patient was therefore felt to be well enough for discharge home by the morning of 12/19/2016. We were going to continue to give her IV Vancomycin for the next week. Her last white blood cell count was down to 12,800 with 0 bands and 80 polys. She will be continued on her usual home medications as well when she continues home as noted in the H&P. She will be given follow up in the office in one week at which time hopefully we will be able to stop the antibiotics.
[2016-12-20] MEDS ORDERED: TROUGH DRUG LEVELS IJ ONE (09:30)
== END 2016-12-19 12:50 | disposition home or self-care (01) | DRG 871 ==
LOC: ED 14:02 → ICU 16:45 → MED SURG 12-15 20:00
PROVIDERS: ADMIT Family Medicine; ATTEND Family Medicine
DX: A41.9 Sepsis, unspecified organism (principal); J18.9 Pneumonia, unspecified organism; R65.21 Severe sepsis with septic shock; I21.4 Non-ST elevation (NSTEMI) myocardial infarction; N17.9 Acute kidney failure, unspecified; J44.1 Chronic obstructive pulmonary disease with (acute) exacerbation; E87.5 Hyperkalemia; L89.510 Pressure ulcer of right ankle, unstageable; E11.9 Type 2 diabetes mellitus without complications; I48.91 Unspecified atrial fibrillation; F41.9 Anxiety disorder, unspecified; Z79.899 Other long term (current) drug therapy
CPT/HCPCS: 36000; 36415; 71010; 71020; 71260; 80048; 80053; 80202; 81000; 82962; 83036; 83605; 83735; 83880; 84132; 84484; 85025; 85027; 85379; 85610; 85730; 87040; 87070; 87077; 87086; 87631; 93005; 93041; 93306; 93970; 94640; 94760; 96360; 96361; 96365; 96366; 96372; 99285; G0008; J1642; J1650; J1956; J2060; J3370; J3475; J3480; 90682; A9270-GY

== ENCOUNTER 2017-06-13 20:02 | Emergency (ER) | payer MEDICAID ==
[2017-06-13 21:12] VITALS: O2SAT 96
[2017-06-13] MEDS ORDERED: DUONEB 0.5-3 MG/3 ml Neb IH ONE ×2 (22:02→22:11)
[2017-06-13] MEDS ORDERED: solu-MEDROL 125 MG IM ONE (22:02)
[2017-06-13] MEDS ORDERED: TORAdol 30 mg Injection IM ONE (22:05)
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
[2017-06-13] MEDS ORDERED: solu-MEDROL 125 MG ONE (22:12)
[2017-06-13] MEDS ORDERED: TORAdol 30 mg Injection ONE (22:12)
[2017-06-13 22:55] LABS: Appearance CLEAR (CLEAR); Bilirubin NEGATIVE (NEGATIVE); Blood NEGATIVE Ery/ul (0-5); Glucose NEGATIVE (NEGATIVE); Ketones NEGATIVE (NEGATIVE); Leukocyte Esterase NEGATIVE (NEGATIVE); Nitrite NEGATIVE (NEGATIVE); Protein,Urine Dip NEGATIVE (Negative); Urobilinogen NORMAL mg/dL (0-1)
[2017-06-13 22:59] VITALS: PULSE 90
[2017-06-13 23:17] VITALS: BP 128/98
[2017-06-13] MEDS ORDERED: Zithromax 250 MG TABLET PO ONE (23:54)
[2017-06-14] MEDS ORDERED: Zithromax 250 MG TABLET ONE (00:04)
--- NOTE | 2017-06-14 09:20 | XRAY ---
Indication: Cough and congestion. Comparison: December 18, 2016. PA/lateral chest hyperinflated with minimal left base fibrosis/scarring. No focal infiltrate, consolidation, or large effusion. Heart and mediastinal structures within normal limits. Bony thorax intact with minimal degenerative changes. Impression: Nonacute hyperinflated chest with chronic features.
== END 2017-06-14 00:15 | disposition home or self-care (01) ==
LOC: ED 20:02
DX: J40 Bronchitis, not specified as acute or chronic (principal); J45.909 Unspecified asthma, uncomplicated; J44.9 Chronic obstructive pulmonary disease, unspecified; R32 Unspecified urinary incontinence; F41.8 Other specified anxiety disorders; R10.9 Unspecified abdominal pain; F43.10 Post-traumatic stress disorder, unspecified; Z85.41 Personal history of malignant neoplasm of cervix uteri; Z72.0 Tobacco use
CPT/HCPCS: 71046; 81002; 84703; 94640; 96372; 99284; 99285; J1885; J2930; A9270-GY

== ENCOUNTER 2021-02-27 14:03 | Emergency (ER) | payer MEDICAID, OTHER ==
[2021-02-27] MEDS ORDERED: XYLOCAINE 1% HCL 20 ML MDV IJ ONE (14:04)
[2021-02-27 14:18] VITALS: O2SAT 98
[2021-02-27 14:49] LABS: Absolute Neutrophil Ct (ANC) 5.71 (1.4-6.9); BASOPHIL % 0.2 % (0.0-0.4); Basophil (Absolute #) 0.02 (0-0.4); Hematocrit 40.4 % (35-47); Hemoglobin 12.9 gm/dl (12.0-16.0); Lymphocyte (Absolute #) 1.07 (1.0-4.6); Lymphocytes % 12.3 % (24.0-44.0); Mean Cell Volume 91.4 fl (78-100); Mean Corpuscular Hemoglobin 29.2 pg (26-32); Mean Corpuscular Hgb Concent. 31.9 g/dl (32-36); Mean Platelet Volume 9.7 fl (7.5-11.0); Monocyte (Absolute #) 0.53 (0.0-1.3); Monocytes % 6.1 % (0.0-12.0); Neutrophil % 65.4 % (36.0-66.0); Platelet Count 291 K/mm3 (150-450); Red Blood Count 4.42 M/mm3 (4.1-5.4); Red Cell Distribution Width 15.6 % (11.5-14.0); White Blood Count 8.7 K/mm3 (4.0-10.5)
[2021-02-27 14:52] LABS: ANION GAP 10.4 MEQ/L (5-15); BLOOD UREA NITROGEN 18 mg/dL (7-17); CHLORIDE 102 mmol/L (98-107); Calcium 8.9 mg/dL (8.4-10.2); Carbon Dioxide 29 mmol/L (22-30); Creatinine 1 0.75 mg/dL (0.52-1.04); EST GLOMERULAR FILTRATION RATE > 60.0 ML/MIN; Glucose 100 mg/dL (74-106); Potassium 4.1 mmol/L (3.5-5.1); SODIUM 137 mmol/L (137-145)
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
[2021-02-27] MEDS ORDERED: Vistaril 50 MG/ML IM ONE (15:00)
[2021-02-27] MEDS ORDERED: Rocephin 1000 MG INJ IM ONE (15:01)
[2021-02-27] MEDS ORDERED: VISTARIL 100MG/2ML IM ONE (15:15)
[2021-02-27] MEDS ORDERED: Rocephin 1000 MG INJ ONE (15:15)
[2021-02-27 15:56] VITALS: BP 115/78; PULSE 93
== END 2021-02-27 15:55 | disposition home or self-care (01) ==
LOC: ED 14:03
DX: R21 Rash and other nonspecific skin eruption (principal); S71.102D Unspecified open wound, left thigh, subsequent encounter; J44.9 Chronic obstructive pulmonary disease, unspecified
CPT/HCPCS: 36415; 80048; 85025; 96372; 99284; J0696; J3410

== ENCOUNTER 2024-04-18 00:02 | Emergency (ER) | payer OTHER ==
[2024-04-18] MEDS ORDERED: MORPHINE SULFATE 4 MG INJ ONE ×2 (00:38→01:17)
[2024-04-18] MEDS: MORPHINE SULFATE 4 MG INJ IM ONE ×2 (00:42→01:05)
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
[2024-04-18 01:29] VITALS: RESP 18; TEMP 99.3
[2024-04-18 03:09] VITALS: BP 148/88; PULSE 97; O2SAT 98
--- NOTE | 2024-04-18 09:43 | XRAY ---
Indication: Status post fall. Comparison: None 3 view right wrist demonstrates mildly displaced, minimally angulated, and comminuted fracture distal radius with intra-articular extension. Also displaced fracture base ulnar styloid and soft tissue swelling. Elsewhere osteopenia and mild/moderate first metacarpal multangular scaphoid degenerative changes.
== END 2024-04-18 02:58 | disposition home or self-care (01) ==
LOC: ED 00:02
DX: S52.571A Other intraarticular fracture of lower end of right radius, initial encounter for closed fracture (principal); S52.611A Displaced fracture of right ulna styloid process, initial encounter for closed fracture; W00.0XXA Fall on same level due to ice and snow, initial encounter; Z79.891 Long term (current) use of opiate analgesic
CPT/HCPCS: 29105; 73110; 96372; 99283; J2270

== ENCOUNTER 2024-04-21 06:00 | Day surgery (SDC) | payer OTHER ==
[2024-04-21] MEDS: CLINDAMYCIN-D5W 900 MG/50 ML*** 900 MG/50 ML BAG IV ONE (06:18)
[2024-04-21] MEDS: celeBREX 100 MG PO ONE (06:18)
[2024-04-21] MEDS: Lactated Ringers 1,000 ML IV SCH (06:18)
[2024-04-21] MEDS: TYLENOL EXTRA STRENGTH 500 MG PO ONE (06:19)
[2024-04-21] MEDS: Decadron 4 MG PO ONE (06:19)
[2024-04-21 06:53] LABS: Absolute Neutrophil Ct (ANC) 5.67 x10^3/uL (1.56-6.13); Basophil (Absolute #) 0.08 x10^3/uL (0.01-0.08); Eosinophil % 5.4 % (0.7-5.8); Eosinophil (Absolute #) 0.43 x10^3/uL (0.04-0.36); Hematocrit 39.2 % (34.1-44.9); Hemoglobin 12.9 g/dL (11.2-15.7); IMMATURE GRAN # 0.02 x10^3u/L (0.001-0.031); IMMATURE GRAN % 0.3 % (0.001-0.429); Lymphocytes % 12.6 % (19.3-51.7); Mean Cell Volume 88.3 fL (79.4-94.8); Mean Corpuscular Hemoglobin 29.1 pg (25.6-32.2); Mean Corpuscular Hgb Concent. 32.9 g/dL (32.2-35.5); Mean Platelet Volume 9.8 fL (9.4-12.3); Monocyte (Absolute #) 0.73 x10^3/uL (0.24-0.86); Monocytes % 9.2 % (4.7-12.5); Neutrophil % 71.5 % (34.0-71.1); Platelet Count 275 x10^3/uL (182-369); Red Blood Count 4.44 x10^6/uL (3.93-5.22); Red Cell Distribution Width 13.7 % (11.7-14.4); White Blood Count 7.9 x10^3/uL (3.98-10.04)
[2024-04-21] MEDS ORDERED: MARCAINE 0.25% PF/ EPI 1:200,000 ONE (06:56)
[2024-04-21] MEDS ORDERED: Lactated Ringers 1,000 ML IV ONE (06:56)
[2024-04-21 07:06] LABS: ALBUMIN 4.5 g/dL (3.5-5.0); ANION GAP 14.3 MEQ/L (5-15); BILIRUBIN,TOTAL 0.6 mg/dL (0.2-1.3); Creatinine 1 0.78 mg/dL (0.52-1.04); EST GLOMERULAR FILTRATION RATE 91.3 ML/MIN; Potassium 4.1 mmol/L (3.5-5.1); Total Protein 7.3 g/dL (6.3-8.2)
[2024-04-21] MEDS ORDERED: SUBLIMAZE 100 MCG/2 ML ONE (07:40)
[2024-04-21] MEDS ORDERED: Versed 2 MG/2 ML Injection ONE (07:40)
[2024-04-21] MEDS ORDERED: Quelicin Fliptop 200 MG/10 ML ONE (07:40)
[2024-04-21] MEDS ORDERED: propofoL IV ONE (07:40)
[2024-04-21] MEDS ORDERED: Marcaine 0.5%/Epinephrine 10 ML ONE (07:44)
[2024-04-21] MEDS ORDERED: Xylocaine-Mpf 2% 5 Ml Vial ONE (07:44)
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
[2024-04-21] MEDS ORDERED: PHENYLEPHRINE HCL ONE (08:24)
[2024-04-21] MEDS ORDERED: BRIDION 200MG/2ML IV ONE (09:17)
--- NOTE | 2024-04-21 09:59 | XRAY ---
Indication: Right distal radius ORIF surgery. Intraoperative fluoroscopy provided for 41 seconds. 2 digital spot images submitted for interpretation demonstrates anterior fixation plate and multiple screws fixating distal radius fracture. Fracture apposition/alignment near anatomic. Correlate with intraoperative findings/report.
--- NOTE | 2024-04-21 10:39 | XRAY ---
Indication: Postop short of breath. Comparison: June 13, 2017 Portable chest inflated and is now clear. Heart is not enlarged. Bony thorax intact. Impression: Nonacute chest.
[2024-04-21 11:08] VITALS: RESP 20; TEMP 97.8; O2SAT 93
[2024-04-21 11:15] VITALS: BP 113/72; PULSE 81
--- NOTE | 2024-04-21 13:06 | XRAY ---
41 seconds of fluoroscopy were used in surgery for a right ORIF of the distal radius.
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
== END 2024-04-21 11:29 | disposition home or self-care (01) ==
LOC: SDC 06:00
PROVIDERS: ATTEND Orthopaedic Surgery
DX: S52.501A Unspecified fracture of the lower end of right radius, initial encounter for closed fracture (principal); W19.XXXA Unspecified fall, initial encounter
CPT/HCPCS: 25609; 36415; 71045; 73110; 76000; 76937; 80053; 85025; 93005; C1713; J0330; J2250; J2371; J2704; J3010; A9270-GY

== ENCOUNTER 2024-12-02 17:58 | Emergency (ER) | payer OTHER ==
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
[2024-12-02 19:04] VITALS: O2SAT 96
[2024-12-02 19:05] LABS: INFLUENZA A NEGATIVE (NEGATIVE); INFLUENZA B NEGATIVE (NEGATIVE); RESPIRATORY SYNCTIAL VIRUS NEGATIVE (NEGATIVE); SARS-CoV-2 Xpert Express NEGATIVE (NEGATIVE)
[2024-12-02 19:10] LABS: Group A Strep NOT DETECTED (NEGATIVE)
[2024-12-02 19:36] VITALS: BP 125/59; PULSE 60; RESP 17; TEMP 97.8
[2024-12-02] MEDS ORDERED: Sterile H2O 10 ml IJ ONE (20:15)
[2024-12-02] MEDS ORDERED: Tessalon Perles 100 MG PO ONE (20:16)
[2024-12-02] MEDS ORDERED: Rocephin 1000 MG INJ ONE (20:16)
[2024-12-02] MEDS ORDERED: XYLOCAINE 1% HCL 20 ML MDV ONE (20:16)
[2024-12-02] MEDS: Rocephin 1000 MG INJ IM ONE (20:18)
[2024-12-02] MEDS: solu-MEDROL 125 MG, Sterile H2O 10 ml 2 ML IM ONE (20:19)
[2024-12-02] MEDS: Tessalon Perles 100 MG PO ONE (20:19)
--- NOTE | 2024-12-02 21:48 | XRAY ---
Indication: Cough. Comparison: April 21, 2024 Portable chest remains clear again with tiny left upper lobe calcified granuloma. Heart not enlarged. Bony thorax intact again with osteopenia and mild degenerative changes. No new/acute findings.
== END 2024-12-02 21:02 | disposition home or self-care (01) ==
LOC: ED 17:58
DX: J06.9 Acute upper respiratory infection, unspecified (principal); R05.1 Acute cough; H92.03 Otalgia, bilateral; Z79.52 Long term (current) use of systemic steroids; Z79.899 Other long term (current) drug therapy